=== PATIENT | female | born 1985 | race American Indian/Alaskan Native ===

== ENCOUNTER 2016-10-09 07:40 | Emergency (ER) | payer SELFPAY ==
[2016-10-09 08:36] LABS: Basophils % (Auto) 0.4 % (0.0-1.8); Hematocrit 40.3 % (30.3-42.9); Hemoglobin 13.7 gm/dl (10.1-14.3); Mean Corpuscular HGB Conc 34 % (30-34); Mean Corpuscular Hemoglobin 33 pg (28-32); Mean Corpuscular Volume 98 fl (79-97); Platelet Count 243 K/mm3 (140-440); Red Blood Count 4.13 M/mm3 (3.65-5.03); White Blood Count 6.9 K/mm3 (4.5-11.0)
[2016-10-09 09:23] VITALS: BP 109/56
[2016-10-09 09:23] LABS: Alanine Aminotransferase 17 units/L (7-56); Albumin 4.2 g/dL (3.9-5); Albumin/Globulin Ratio 1.1 %; Alkaline Phosphatase 64 units/L (35-129); Anion Gap 16 mmol/L; BUN/Creatinine Ratio 8.57; Blood Urea Nitrogen 6 mg/dL (7-17); Calcium 8.9 mg/dL (8.4-10.2); Carbon Dioxide 22 mmol/L (22-30); Chloride 101.7 mmol/L (98-107); Glucose 99 mg/dL (65-100); Lipase 17 units/L (13-60); Potassium 3.8 mmol/L (3.6-5.0); Sodium 136 mmol/L (137-145); Total Protein 8.1 g/dL (6.3-8.2)
--- NOTE | 2016-10-09 10:49 | Emergency Department Report ---
Vomiting/Diarrhea - HPI Chief Complaint: Nausea/Vomiting/Diarrhea Stated Complaint: FEVER,SORENESS/DIARRHEA/CHILLS/NAUSEA Time Seen by Provider: 10/09/16 10:34 Duration: 2 Days Severity: mild Nausea/Vomiting Severity: Mild Diarrhea Severity: Moderate Pain Location: Generalized Pain Severity: Mild Symptoms: Yes Watery Diarrhea, Yes Able to Tolerate Fluids, Yes Contacts w/ Similar Symptoms, No Bloody diarrhea, No Fever, No Recent Unusual Foods, No Recent Untreated Water, No Recent use of Antibiotics, No Family w/ Similar Symptoms, No Rash, No Hematuria, No Recent URI Symptoms ED Review of Systems ROS: Stated complaint: FEVER,SORENESS/DIARRHEA/CHILLS/NAUSEA Other details as noted in HPI Comment: All other systems reviewed and negative Constitutional: chills Endocrine: no symptoms reported Gastrointestinal: abdominal pain, nausea, vomiting, diarrhea ED Past Medical Hx - Past Medical History Previous Medical History?: No - Surgical History Additional Surgical History: x 2. TUBAL LIGATION - Social History Smoking Status: Current Every Day Smoker Substance Use Type: None - Medications Home Medications: Home Medications Medication Instructions Recorded Confirmed Last Taken Type Diphenoxylate HCl/Atropine 1 each PO BID PRN #7 tablet 10/09/16 Unknown Rx [Lomotil 2.5-0.025 mg Tablet] Vomiting Diarrhea Exam - Exam General: Vital signs noted. No distress. Alert and acting appropriately. HEENT: No Pharyngeal Erythema, No Pharyngeal Exudates, No Moist Mucous Membranes , No Rhinorrhea, No Conjuctival Injection, No Frontal Tenderness, No Maxillary Tenderness Neck: No Adenopathy, No Rigidity Lungs: Yes Clear Lung Sounds, Yes Good Air Exchange Heart exam: Regular: Yes Abdomen: Tenderness: No, Peritoneal Signs: No, Distention: No, Hyperactive Bowel sounds: No Skin exam: Rash: No, Edema: No, Normal turgor: No Neurologic: Alert and oriented, no deficits. Musculoskeletal: Unremarkable. ED Course Vital Signs 10/09/16 10/09/16 08:12 09:22 Temperature 99.0 F 98.6 F Pulse Rate 91 H 80 Respiratory 18 18 Rate Blood Pressure 128/80 Blood Pressure 109/56 [Left] O2 Sat by Pulse 100 97 Oximetry - Reevaluation(s) Reevaluation #1: 10/09/16 10:47 feels better ED Medical Decision Making - Lab Data Result diagrams: 10/09/16 08:26 10/09/16 08:26 Critical care attestation.: If time is entered above; I have spent that time in minutes in the direct care of this critically ill patient, excluding procedure time. ED Disposition Clinical Impression: Gastroenteritis Disposition: DC-01 TO HOME OR SELFCARE Is pt being admited?: No Does the pt Need Aspirin: No Condition: Stable Instructions: Gastroenteritis (ED) Prescriptions: Diphenoxylate HCl/Atropine [Lomotil 2.5-0.025 mg Tablet] 1 each PO BID PRN #7 tablet PRN Reason: Diarrhea Referrals: PRIMARY CARE, [Primary Care Provider] - 3-5 Days
[2016-10-09 11:39] LABS: Bacteria,Urine 1+ /HPF (Negative); Bilirubin,Urine NEG (Negative); Blood,Urine MOD (Negative); Ketones,Urine TR mg/dL (Negative); Leukocyte Esterase,Urine NEG (Negative); Mucus,Urine 3+ /HPF; Nitrite,Urine NEG (Negative); Urobilinogen,Urine < 2.0 mg/dL (<2.0)
== END 2016-10-09 11:15 | disposition home or self-care (01) ==
LOC: ED 07:40
DX: K52.9 Noninfective gastroenteritis and colitis, unspecified (principal); F17.200 Nicotine dependence, unspecified, uncomplicated
CPT/HCPCS: 36415; 80053; 81001; 83690; 84703; 85025; 99283

== ENCOUNTER 2017-05-03 07:31 | Emergency (ER) | payer MEDICAID ==
[2017-05-03 07:41] VITALS: BP 139/62
[2017-05-03 08:25] LABS: Basophils % (Auto) 0.4 % (0.0-1.8); Eosinophils % (Auto) 0.1 % (0.0-4.3); Hematocrit 39.4 % (30.3-42.9); Hemoglobin 13.2 gm/dl (10.1-14.3); Lymphocytes # (Auto) 1.5 K/mm3 (1.2-5.4); Lymphocytes % (Auto) 25.2 % (13.4-35.0); Mean Corpuscular HGB Conc 33 % (30-34); Mean Corpuscular Hemoglobin 33 pg (28-32); Mean Corpuscular Volume 99 fl (79-97); Monocytes # (Auto) 0.3 K/mm3 (0.0-0.8); Monocytes % (Auto) 5.4 % (0.0-7.3); Platelet Count 272 K/mm3 (140-440); Red Cell Distribution Width 13.2 % (13.2-15.2)
[2017-05-03 08:41] LABS: Alanine Aminotransferase 8 units/L (7-56); Albumin 4.1 g/dL (3.9-5); BUN/Creatinine Ratio 11; Blood Urea Nitrogen 8 mg/dL (7-17); Calcium 9.1 mg/dL (8.4-10.2); Hemolysis Index 9
[2017-05-03 09:06] LABS: Bacteria,Urine 1+ /HPF (Negative); Bilirubin,Urine NEG (Negative); Blood,Urine LG (Negative); Mucus,Urine 2+ /HPF; Nitrite,Urine NEG (Negative)
[2017-05-03 09:07] LABS: Color,Urine Red (Yellow); HCG Qualitative,Urine Negative (Negative); RBC,Urine > 182.0 /HPF (0.0-6.0)
--- NOTE | 2017-05-03 09:48 | Emergency Department Report ---
Chief Complaint: Abdominal Pain Stated Complaint: ABD PAIN/VAG BLEEDING Time Seen by Provider: 05/03/17 09:39 - HPI History of Present Illness: 31-year-old female presents with a complaint of left upper quadrant abdominal discomfort that is intermittent but can be intense. It is associated with some vaginal bleeding that started off as a brownish color yesterday but was bright red today. The patient's last menstrual cycle was on the of last month and therefore this would be a very early menstrual cycle for her. She denies any nausea, vomiting, dysuria. She says that she has been dealing with some constipation issues but went to see her PCP last week and upon returning from that visit she had a satisfactory bowel movement. Patient has a history of tubal ligation. She has not taken anything for her symptoms prior to presentation. - ROS Review of Systems: ROS: Patient is positive for abdominal pain, vaginal bleeding Patient is negative for fever, back pain, dysuria, chest pain, shortness of breath - Exam Vital Signs: Vital Signs 05/03/17 07:35 Temperature 98.7 F Pulse Rate 79 Respiratory 16 Rate Blood Pressure 139/62 O2 Sat by Pulse 100 Oximetry Physical Exam: GENERAL: The patient is well-developed well-nourished. HENT: Normocephalic. Atraumatic. EYES: Extraocular motions are intact. NECK: Supple. Trachea is midline. CHEST/LUNGS: Clear to auscultation. There is no respiratory distress noted. HEART/CARDIOVASCULAR: Regular. There is no tachycardia. There is no murmur. ABDOMEN: Abdomen is soft. Mild left upper quadrant tenderness to palpation. No guarding or rebound tenderness. Patient has normal bowel sounds. There is no abdominal distention. SKIN: Skin is warm and dry. NEURO: The patient is awake, alert, and oriented. The patient is cooperative. The patient has no focal neurologic deficits. The patient has normal speech. MUSCULOSKELETAL: There is no tenderness or deformity. There is no evidence of acute injury. MSE screening note: Focused history and physical exam performed. Due to findings the following was ordered: ED Medical Decision Making - Lab Data Result diagrams: 05/03/17 08:05 05/03/17 08:05 ED Disposition for MSE Condition: Stable Instructions: Abdominal Pain (ED) Referrals: PRIMARY CARE, [Primary Care Provider] - 3-5 Days
--- NOTE | 2017-05-03 10:01 | XRay Report ---
ABDOMEN, 2 views: History: Abdominal pain. There is no evidence of free air beneath the diaphragms. The gas pattern within the abdomen is unremarkable. There is no evidence of bowel dilatation, significant air-fluid levels, or pathologic calcifications. Organ shadows are unremarkable. IMPRESSION: Unremarkable abdomen.
[2017-05-03] MEDS ORDERED: MACROBID PO ONE (10:31)
--- NOTE | 2017-05-03 10:35 | Emergency Department Report ---
HPI - General Chief Complaint: Abdominal Pain Time Seen by Provider: 05/03/17 09:39 - HPI HPI: 31-year-old female presents with a complaint of left upper quadrant abdominal discomfort that is intermittent but can be intense. It is associated with some vaginal bleeding that started off as a brownish color yesterday but was bright red today. The patient's last menstrual cycle was on the 22 of last month and therefore this would be a very early menstrual cycle for her. She denies any nausea, vomiting, dysuria. She says that she has been dealing with some constipation issues but went to see her PCP last week and upon returning from that visit she had a satisfactory bowel movement. Patient has a history of tubal ligation. She has not taken anything for her symptoms prior to presentation. ED Past Medical Hx - Past Medical History Previous Medical History?: No - Surgical History Past Surgical History?: Yes Additional Surgical History: x 2. TUBAL LIGATION - Social History Smoking Status: Current Every Day Smoker Substance Use Type: None - Medications Home Medications: Home Medications Medication Instructions Recorded Confirmed Last Taken Type Diphenoxylate HCl/Atropine 1 each PO BID PRN #7 tablet 10/09/16 Unknown Rx [Lomotil 2.5-0.025 mg Tablet] HYDROcodone/ACETAMINOPHEN [[place] 1 each PO Q8H PRN #8 tablet 05/03/17 Unknown Rx 5-325 Tablet] Nitrofurantoin Monohyd/M-Cryst 100 mg PO BID #14 capsule 05/03/17 Unknown Rx [Macrobid 100 mg Capsule] Omeprazole Magnesium [PriLOSEC Otc] 20 mg PO QDAY #10 tablet. 05/03/17 Unknown Rx ED Review of Systems ROS: Stated complaint: ABD PAIN/VAG BLEEDING Other details as noted in HPI Comment: All other systems reviewed and negative Constitutional: denies: chills, fever Eyes: denies: eye pain, eye discharge, vision change ENT: denies: ear pain, throat pain Respiratory: denies: cough, shortness of breath, wheezing Cardiovascular: denies: chest pain, palpitations Gastrointestinal: abdominal pain. denies: nausea, vomiting Genitourinary: other (vaginal bleeding). denies: dysuria Musculoskeletal: denies: back pain, joint swelling, arthralgia Skin: denies: rash, lesions Neurological: denies: headache, weakness, paresthesias Physical Exam - Physical Exam Vital Signs: Vital Signs 05/03/17 07:35 Temperature 98.7 F Pulse Rate 79 Respiratory 16 Rate Blood Pressure 139/62 O2 Sat by Pulse 100 Oximetry Physical Exam: GENERAL: The patient is well-developed well-nourished. HENT: Normocephalic. Atraumatic. Patient has moist mucous membranes. EYES: Extraocular motions are intact. Pupils equal reactive to light bilaterally. NECK: Supple. Trachea is midline. CHEST/LUNGS: Clear to auscultation. There is no respiratory distress noted. HEART/CARDIOVASCULAR: Regular. There is no tachycardia. There is no murmur. ABDOMEN: Abdomen is soft. Unable to reproduce her LUQ tenderness to palpation and her pain is intermittent. Patient has normal bowel sounds. There is no abdominal distention. SKIN: Skin is warm and dry. NEURO: The patient is awake, alert, and oriented. The patient is cooperative. The patient has no focal neurologic deficits. The patient has normal speech. MUSCULOSKELETAL: There is no tenderness or deformity. There is no limitation range of motion. There is no evidence of acute injury. ED Course Vital Signs 05/03/17 07:35 Temperature 98.7 F Pulse Rate 79 Respiratory 16 Rate Blood Pressure 139/62 O2 Sat by Pulse 100 Oximetry ED Medical Decision Making - Lab Data Result diagrams: 05/03/17 08:05 05/03/17 08:05 - Radiology Data Radiology results: image reviewed interpreted by me: Abdominal x-ray shows nonspecific nonobstructive bowel gas. - Medical Decision Making Patient presents with some recent intermittent left upper quadrant abdominal cramping pain that she says feels like "giving ." She also has some mild vaginal bleeding. Negative for . This could be abnormal dysfunctional uterine bleeding. However she does not have any pelvic or lower abdominal pain and therefore I did not feel that any pelvic ultrasound was necessary at this time. Labs show a urinary tract infection. No leukocytosis, electrolyte abnormalities, renal insufficiency or glucose abnormalities. Patient will be treated with Macrobid, PPI and given a small amount of pain medication. Abdominal x-ray did not show any acute process. She has normal labs and normal x-ray imaging and her pain is in the left upper quadrant of the abdomen, I did not feel that any CT imaging of the abdomen was necessary at this time. The patient has a primary care doctor for follow-up. She was given a gastroenterology referral for her left upper quadrant abdominal pain which could be gastritis. She was given an [employer] referral for the abnormal vaginal bleeding. She will return to the ER with any worsening of her symptoms or any acute distress. - Differential Diagnosis gastritis, , viral syndrome, GERD, malignancy Critical Care Time: No Critical care attestation.: If time is entered above; I have spent that time in minutes in the direct care of this critically ill patient, excluding procedure time. ED Disposition Clinical Impression: Abdominal pain Qualifiers: Abdominal location: left upper quadrant Qualified Code(s): R10.12 - Left upper quadrant pain UTI (urinary tract infection) Qualifiers: Urinary tract infection type: acute cystitis Hematuria presence: without hematuria Qualified Code(s): N30.00 - Acute cystitis without hematuria Disposition: TO HOME OR SELFCARE Is pt being admited?: No Condition: Stable Instructions: Dysfunctional Uterine Bleeding (ED), Urinary Tract Infection in Women (ED), Abdominal Pain (ED) Additional Instructions: Please follow-up with your primary care physician in the next few days. I have given you a referral for a local multineedle shirrer, Dr. Garland, to follow up regarding your upper abdominal pain. I have also given you multiple referrals for [employer] groups to follow up regarding your abnormal vaginal bleeding or menstrual cycle. Return to the emergency Department with any worsening of your symptoms or any acute distress. You have been prescribed a medication that is sedating and therefore should not be taken prior to driving, working, and responsible for children and in no way should be mixed with alcohol of any quantity. Prescriptions: HYDROcodone/ACETAMINOPHEN [Speonk 5-325 Tablet] 1 each PO Q8H PRN #8 tablet PRN Reason: Pain Nitrofurantoin Monohyd/M-Cryst [Macrobid 100 mg Capsule] 100 mg PO BID #14 capsule Omeprazole Magnesium [PriLOSEC Otc] 20 mg PO QDAY #10 tablet. Referrals: PRIMARY MD ZELDA [Primary Care Provider] - 3-5 Days Time of Disposition: 10:35
== END 2017-05-03 10:51 | disposition home or self-care (01) ==
LOC: ED 07:31
DX: N39.0 Urinary tract infection, site not specified (principal); R10.12 Left upper quadrant pain; F17.200 Nicotine dependence, unspecified, uncomplicated; Z98.51 Tubal ligation status
CPT/HCPCS: 36415; 74019; 80053; 81001; 81025; 85025; 99284

== ENCOUNTER 2017-08-16 09:12 | Emergency (ER) | payer MEDICAID ==
[2017-08-16 09:20] VITALS: BP 134/55
[2017-08-16 10:11] LABS: Bacteria,Urine 1+ /HPF (Negative); Bilirubin,Urine NEG (Negative); Blood,Urine MOD (Negative); Color,Urine Yellow (Yellow); Mucus,Urine 3+ /HPF
[2017-08-16 10:20] LABS: HCG Qualitative,Urine Negative (Negative)
--- NOTE | 2017-08-16 10:27 | Emergency Department Report ---
ED Female HPI - General Chief complaint: Urogenital-Female Stated complaint: FOREIGN OBJECT VAGINAL AREA Time Seen by Provider: 08/16/17 10:02 Source: patient Mode of arrival: Ambulatory Limitations: No Limitations - History of Present Illness Initial comments: Patient reports that she think a part of a condom is left inside of her. She said that she couldn't find the top part which is a ring area of the condom and this is then one week. She reports vaginal discomfort 6 out of 10 and burning. Denies any pain with urination. Denies any vaginal discharge but reports that she just started her period yesterday 08/15/2017. This reported the patient last menstrual period was 07/19/2017 but patient denies. Denies any medical problem. History of and tubal ligation. Denies any concern for STDs. Denies any abdominal or back pain. Denies any fever or chills. Denies any nausea or vomiting. Patient says she has an BUSINESS DEVELOPMENT PROFESSIONAL in [place] and has been following her for pain in her pelvic area and she is scheduled to have an MRI tomorrow and scheduled to see her BUSINESS DEVELOPMENT PROFESSIONAL 08/19/2017. She reports that she use warm water to flush inside of vagina several times but nothing came out. MD Complaint: other (vaginal irritation and possible condom left in the vaginal area) Onset/Timin -: week(s) Location: other (possible condom and vagina with irritation) Severity: moderate Severity scale (0 -10): 6 Quality: burning (irritation) Consistency: intermittent Improves with: none Worsens with: none Are you Now?: No Last Menstrual Period: 08/15/17 EDC: 05/22/18 Associated Symptoms: vaginal bleeding (from menstruation), other (foreign body with vaginal irritation). denies: vaginal discharge, abdominal pain, nausea/ vomiting, fever/chills, headaches, loss of appetite, dysuria, hematuria, rash, seizure, shortness of breath, syncope, weakness - Related Data Sexually active: Yes Previous Rx's Medication Instructions Recorded Last Taken Type Cephalexin [Keflex] 500 mg PO Q8HR 5 Days #15 cap 08/16/17 Unknown Rx Allergies Allergy/AdvReac Type Severity Reaction Status Date / Time No Known Allergies Allergy Verified 05/03/17 07:41 ED Review of Systems ROS: Stated complaint: FOREIGN OBJECT VAGINAL AREA Other details as noted in HPI Constitutional: denies: chills, fever Eyes: denies: eye pain ENT: denies: throat pain, congestion Respiratory: denies: cough, shortness of breath, SOB with exertion, SOB at rest , stridor, wheezing Cardiovascular: denies: chest pain, palpitations Gastrointestinal: denies: abdominal pain, nausea, vomiting, diarrhea Genitourinary: other (reports possible foreign body in vaginal vault with irritation). denies: urgency, dysuria, frequency, hematuria, discharge, abnormal menses Musculoskeletal: denies: back pain, joint swelling, arthralgia, myalgia Skin: denies: rash, lesions Neurological: denies: headache ED Past Medical Hx - Past Medical History Previous Medical History?: No - Surgical History Past Surgical History?: Yes Additional Surgical History: x 2. TUBAL LIGATION - Family History Family history: hypertension - Social History Smoking Status: Current Every Day Smoker Substance Use Type: None Other Social History: Single and currently in school - Medications Home Medications: Home Medications Medication Instructions Recorded Confirmed Last Taken Type Cephalexin [Keflex] 500 mg PO Q8HR 5 Days #15 cap 08/16/17 Unknown Rx ED Physical Exam - General Limitations: No Limitations General appearance: alert, in no apparent distress - Head Head exam: Present: atraumatic, normocephalic, normal inspection - Eye Eye exam: Present: normal appearance - ENT ENT exam: Present: normal exam, normal orophraynx, mucous membranes moist - Neck Neck exam: Present: normal inspection, full ROM. Absent: tenderness, lymphadenopathy - Respiratory Respiratory exam: Present: normal lung sounds bilaterally. Absent: respiratory distress, chest wall tenderness - Cardiovascular Cardiovascular Exam: Present: regular rate, normal rhythm, normal heart sounds. Absent: systolic murmur, diastolic murmur - GI/Abdominal GI/Abdominal exam: Present: soft, normal bowel sounds. Absent: distended, tenderness, guarding, rebound, rigid, organomegaly, mass, bruit, pulsatile mass , hernia - Rectal Rectal exam: Present: normal inspection - External exam: Present: normal external exam, erythema. Absent: swelling, lesions, lacerations, ecchymosis, bleeding Speculum exam: Present: vaginal bleeding, other (no foreign body noted). Absent : erythema, vaginal discharge, cervical discharge, tissue, laceration Bi-manual exam: Present: normal bi-manual exam - Expanded Exam Expanded Female exam: Absent: vaginal laceration, tissue present in vagina, herpetic lesions, vulvar erythema, vulvar tenderness, foreign body External exam: Present: normal Speculum exam: Present: cervical OS closed, vaginal bleeding (minimal forearm cervix) - Extremities Exam Extremities exam: Present: normal inspection, full ROM, normal capillary refill , other (no clubbing, cyanosis or edema +2 pulses to Extremities. Neurovascular compromise). Absent: tenderness, pedal edema, joint swelling, calf tenderness - Back Exam Back exam: Present: normal inspection, full ROM, other (ambulatory without any difficulties). Absent: tenderness, CVA tenderness (R), CVA tenderness (L), muscle spasm, paraspinal tenderness, vertebral tenderness, rash noted - Neurological Exam Neurological exam: Present: alert, oriented X3, normal gait - Psychiatric Psychiatric exam: Present: normal affect, normal mood - Skin Skin exam: Present: warm, dry, intact, normal color. Absent: rash ED Course Vital Signs 08/16/17 09:15 Temperature 98.5 F Pulse Rate 85 Respiratory 18 Rate Blood Pressure 134/55 O2 Sat by Pulse 100 Oximetry - Reevaluation(s) Reevaluation #1: 08/16/17 11:57 Patient stable throughout ED course. Pelvic exam done with exploration for foreign body and none seen. ED Medical Decision Making - Medical Decision Making ED course: Patient is here complaining in the she has possible foreign body in her vagina which she described as the top part of a condom. She says she just started her menses today. She states reporting vaginal irritation. Abdominal and back exam is normal. Vaginal exam reveals minimal bleeding. Cervical os otherwise normal exam. No foreign body noted in vaginal vault. I discussed patient that urinalysis shows that she has some bacteria which could be from contamination but since she is having irritation and she has other components of her urinalysis that were positive I will treat her for urinary tract infection. Discussed with her that she needs to keep her appointment for MRI of the abdomen and pelvis tomorrow and to follow up with her BUSINESS DEVELOPMENT PROFESSIONAL on 2017. Patient was understanding of discharge ejection, diagnosis and treatment plan and discharged from emergency room in stable condition Critical care attestation.: If time is entered above; I have spent that time in minutes in the direct care of this critically ill patient, excluding procedure time. ED Disposition Clinical Impression: Vaginal irritation UTI (urinary tract infection) Qualifiers: Urinary tract infection type: acute cystitis Hematuria presence: with hematuria Qualified Code(s): N30.01 - Acute cystitis with hematuria Disposition: TO HOME OR SELFCARE Is pt being admited?: No Does the pt Need Aspirin: No Condition: Stable Instructions: Urinary Tract Infection in Women (ED) Additional Instructions: Please keep the appointment for MRI tomorrow and also free BUSINESS DEVELOPMENT PROFESSIONAL visit. Take antibiotic as prescribed Prescriptions: Cephalexin [Keflex] 500 mg PO Q8HR 5 Days #15 cap Referrals: SUZY ALAS MD [Primary Care Provider] - 2-3 Days follow-up with your, BUSINESS DEVELOPMENT PROFESSIONAL [Other] - 08/19/17 (Scheduled) Forms: Work/School Release Form(ED)
== END 2017-08-16 12:13 | disposition home or self-care (01) ==
LOC: ED 09:12
DX: N89.8 Other specified noninflammatory disorders of vagina (principal); N39.0 Urinary tract infection, site not specified; F17.200 Nicotine dependence, unspecified, uncomplicated
CPT/HCPCS: 81001; 81025; 99283

== ENCOUNTER 2018-07-11 06:53 | Emergency (ER) | payer MEDICAID ==
[2018-07-11 07:06] VITALS: BP 146/74
[2018-07-11 08:53] LABS: Basophils % (Auto) 0.3 % (0.0-1.8); Eosinophils % (Auto) 0.1 % (0.0-4.3); Hematocrit 38.2 % (30.3-42.9); Hemoglobin 12.8 gm/dl (10.1-14.3); Lymphocytes # (Auto) 1.5 K/mm3 (1.2-5.4); Lymphocytes % (Auto) 15.3 % (13.4-35.0); Mean Corpuscular HGB Conc 33 % (30-34); Mean Corpuscular Volume 100 fl (79-97); Monocytes # (Auto) 0.8 K/mm3 (0.0-0.8); Monocytes % (Auto) 7.6 % (0.0-7.3); Platelet Count 251 K/mm3 (140-440); Red Blood Count 3.82 M/mm3 (3.65-5.03); Red Cell Distribution Width 13.3 % (13.2-15.2)
--- NOTE | 2018-07-11 08:55 | Emergency Department Report ---
ED Chest Pain HPI - General Chief Complaint: Chest Pain Stated Complaint: CHEST AND RT SHOULDER PAIN Time Seen by Provider: 07/11/18 08:26 Source: patient Mode of arrival: Ambulatory Limitations: No Limitations - History of Present Illness Initial Comments: This is a 33-year-old female nontoxic, well nourished in appearance, no acute signs of distress presents to the ED with c/o of right upper chest pain and right shoulder pain x1 day. 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 Patient stated that symptoms are worsened with movement and resolves with rest. Patient denies any radiation of pain. Patient describes pain as aching. Patient denies any upper respiratory symptoms. Patient denies any shortness of breath, hemoptysis, fever, chills, nausea, vomiting, headache, stiff neck, numbness, tingling, abdominal pain. Patient denies pleuritic chest pain. Patient denies any recent travels or long car rides. Patient denies any recent surgeries or any sick contacts. Patient denies any drug allergies. MD Complaint: chest pain -: days(s) (1) Pain Location: right chest Pain Radiation: none Severity: mild Quality: aching Consistency: intermittent Improves With: movement Worsens With: other (rest) re: denies: nausea, vomting, diaphoresis, dyspnea, sense of impending doom Other Symptoms: denies: cough, fever, syncope, rash, acid taste in mouth, leg swelling, palpitations, burping Treatments Prior to Arrival: none Aspirin use within the Past 7 Days: (0) No - Related Data On Oral Contraceptives: No Previous Rx's Medication Instructions Recorded Last Taken Type cephALEXin [Keflex] 500 mg PO Q8HR 5 Days #15 cap 08/16/17 Unknown Rx Cyclobenzaprine [Flexeril] 10 mg PO QHS PRN #10 tablet 07/11/18 Unknown Rx Ibuprofen [Motrin] 600 mg PO Q8H PRN #20 tablet 07/11/18 Unknown Rx Allergies Allergy/AdvReac Type Severity Reaction Status Date / Time No Known Allergies Allergy Verified 07/11/18 07:04 Heart Score - HEART Score History: Slightly suspicious EKG: Normal Age: < 45 Risk factors: No known risk factors Troponin: < normal limit HEART Score: 0 ED Review of Systems ROS: Stated complaint: CHEST AND RT SHOULDER PAIN Other details as noted in HPI Constitutional: denies: chills, fever Eyes: denies: eye pain, eye discharge, vision change ENT: denies: ear pain, throat pain Respiratory: denies: cough, shortness of breath, wheezing Cardiovascular: chest pain. denies: palpitations Endocrine: no symptoms reported Gastrointestinal: denies: abdominal pain, nausea, diarrhea Genitourinary: denies: urgency, dysuria, discharge Musculoskeletal: denies: back pain, joint swelling, arthralgia Skin: denies: rash, lesions Neurological: denies: headache, weakness, paresthesias Psychiatric: denies: anxiety, depression Hematological/Lymphatic: denies: easy bleeding, easy bruising ED Past Medical Hx - Past Medical History Previous Medical History?: No - Surgical History Additional Surgical History: x 2. TUBAL LIGATION - Social History Smoking Status: Current Every Day Smoker Substance Use Type: None - Medications Home Medications: Home Medications Medication Instructions Recorded Confirmed Last Taken Type cephALEXin [Keflex] 500 mg PO Q8HR 5 Days #15 cap 08/16/17 Unknown Rx Cyclobenzaprine [Flexeril] 10 mg PO QHS PRN #10 tablet 07/11/18 Unknown Rx Ibuprofen [Motrin] 600 mg PO Q8H PRN #20 tablet 07/11/18 Unknown Rx ED Physical Exam - General Limitations: No Limitations General appearance: alert, in no apparent distress - Head Head exam: Present: atraumatic, normocephalic - Eye Eye exam: Present: normal appearance - Neck Neck exam: Present: normal inspection, full ROM. Absent: tenderness, meningismus, lymphadenopathy - Respiratory Respiratory exam: Present: normal lung sounds bilaterally, chest wall tenderness (Right upper chest). Absent: respiratory distress, wheezes, rales, rhonchi, stridor, accessory muscle use, decreased breath sounds, prolonged expiratory - Cardiovascular Cardiovascular Exam: Present: regular rate, normal rhythm, normal heart sounds. Absent: bradycardia, tachycardia, irregular rhythm, systolic murmur, diastolic murmur, rubs, gallop - GI/Abdominal GI/Abdominal exam: Present: soft, normal bowel sounds. Absent: distended, tenderness, guarding, rebound, rigid, diminished bowel sounds - Extremities Exam Extremities exam: Present: normal inspection, full ROM, tenderness (right deltoid muscle), normal capillary refill. Absent: joint swelling - Back Exam Back exam: Present: normal inspection, full ROM, paraspinal tenderness (right cervical paraspinal). Absent: tenderness, CVA tenderness (R), CVA tenderness (L), muscle spasm, vertebral tenderness, rash noted - Neurological Exam Neurological exam: Present: alert, oriented X3 - Psychiatric Psychiatric exam: Present: normal affect, normal mood - Skin Skin exam: Present: warm, dry, intact, normal color. Absent: rash ED Course Vital Signs 07/11/18 07/11/18 07:04 09:24 Temperature 99.4 F Pulse Rate 88 Respiratory 18 18 Rate Blood Pressure 146/74 O2 Sat by Pulse 100 Oximetry - Reevaluation(s) Reevaluation #1: 07/11/18 09:05 Patient is speaking in full sentences with no signs of distress noted. CHIN score - Chin Score Age > 65: (0) No Aspirin use within the Past 7 Days: (0) No 3 or more CAD Risk Factors: (0) No 2 or more Angina events in past 24 hrs: (0) No Known CAD with more than 50% Stenosis: (0) No Elevated Cardiac Markers: (0) No ST Deviation Greater than 0.5mm: (0) No CHIN Score: 0 ED Medical Decision Making - Lab Data Result diagrams: 07/11/18 08:38 07/11/18 08:38 - Medical Decision Making This is a 33-year-old female that presents with chest pain and right muscle strain upper shoulder. Patient is stable and was examined by me. CHIN and HEART score 0 pints. Wells criteria for DVT/SVT/PE 0 points. EKG normal sinus rhythm with no significant changes in ST. Chest xray dictated by the radiologist. PAtient is notified of the Xray report with no questions noted. Labs within normal limits. Negative troponin. Patient received [place] in the ED which she stated his symptoms are improving subsided. Patient stated that her boyfriend will drive her home after discharge due to possible drowsiness of [place]. I will discharge patient with Flexeril and Motrin. 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 At time of discharge, the patient does not seem toxic or ill in appearance. No acute signs of distress noted. Patient agrees to discharge treatment plan of care. No further questions noted by the patient. Critical care attestation.: If time is entered above; I have spent that time in minutes in the direct care of this critically ill patient, excluding procedure time. ED Disposition Clinical Impression: Chest pain Qualifiers: Chest pain type: unspecified Qualified Code(s): R07.9 - Chest pain, unspecified Muscle strain of right upper arm Qualifiers: Encounter type: initial encounter Qualified Code(s): S46.911A - Strain of unspecified muscle, fascia and tendon at shoulder and upper arm level, right arm, initial encounter Disposition: TO HOME OR SELFCARE Is pt being admited?: No Does the pt Need Aspirin: No Condition: Stable Instructions: Chest Pain (ED), Muscle Strain (ED), Cyclobenzaprine (By mouth) Additional Instructions: Follow-up with a primary care doctor in 3-5 days or if symptoms worsen and continue return to emergency room as soon as possible. Take ibuprofen and Flexeril as prescribed. Do not operate heavy machinery while taking Flexeril due to sedation Prescriptions: Cyclobenzaprine [Flexeril] 10 mg PO QHS PRN #10 tablet PRN Reason: Muscle Spasm Ibuprofen [Motrin] 600 mg PO Q8H PRN #20 tablet PRN Reason: Pain [facility] 3-5 Days PRIMARY CAREMD [Referring] - 3-5 Days LUCIE GRIMALDO MD [Staff Physician] - 3-[address] [facility] [Outside] - 3-5 Days Forms: Work/School Release Form(ED)
[2018-07-11] MEDS ORDERED: NORCO 10/325 PO ONE (09:00)
[2018-07-11 09:03] LABS: INR 0.88 (0.87-1.13)
[2018-07-11 09:08] LABS: BUN/Creatinine Ratio 13; Blood Urea Nitrogen 8 mg/dL (7-17); Hemolysis Index 9
--- NOTE | 2018-07-11 10:16 | XRay Report ---
EXAM: XR CHEST ROUTINE 2V HISTORY: Chest Pain TECHNIQUE: PA and lateral chest x-ray dated 07/11/2018 at 9:30 AM. COMPARISON: None available. FINDINGS: The heart size and mediastinum are within normal limits. The lung paul and costophrenic angles are clear. There is no acute parenchymal infiltrate, pleural effusion, or pneumothorax seen. The visua lized bony structures are within normal limits. IMPRESSION: 1. No evidence for acute cardiopulmonary disease seen. This document is electronically signed by Terrie Landeros MD., July 11 2018 10:15:07 AM ET
== END 2018-07-11 10:37 | disposition home or self-care (01) ==
LOC: ED 06:53
DX: S46.911A Strain of unspecified muscle, fascia and tendon at shoulder and upper arm level, right arm, initial encounter (principal); R07.89 Other chest pain; F17.200 Nicotine dependence, unspecified, uncomplicated; Z98.51 Tubal ligation status; X58.XXXA Exposure to other specified factors, initial encounter; Y93.89 Activity, other specified; Y92.89 Other specified places as the place of occurrence of the external cause; Y99.8 Other external cause status
CPT/HCPCS: 36415; 71046; 80048; 84484; 84703; 85025; 85610; 85730; 93005; 93010; 99284

== ENCOUNTER 2019-04-30 10:48 | Emergency (ER) | payer MEDICAID ==
[2019-04-30 10:59] VITALS: BP 126/81
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
== END 2019-04-30 12:06 | disposition left against medical advice (07) ==
LOC: ED 10:48
DX: S39.012A Strain of muscle, fascia and tendon of lower back, initial encounter (principal); V49.9XXA Car occupant (driver) (passenger) injured in unspecified traffic accident, initial encounter; Y93.89 Activity, other specified; Y92.89 Other specified places as the place of occurrence of the external cause; Y99.8 Other external cause status
CPT/HCPCS: 99282